=== PATIENT | female | born 1970 ===

== ENCOUNTER 2023-03-25 19:06 | Emergency (ER) | payer OTHER ==
[~2023-03-25] VITALS: Ht 167.6 cm; Wt 108.9 kg
[2023-03-25 19:13] VITALS: BP 144/79; RESP 16; TEMP 97.8; O2SAT 96
[2023-03-25] MEDS ORDERED: IBUPROFEN 600 MG TAB PO ONE (19:45)
[2023-03-25] MEDS ORDERED: HYDR28CR38 TP (20:17)
[2023-03-25] MEDS ORDERED: DIPH25TA53 PO (20:17)
[2023-03-25] MEDS ORDERED: MUPI2CRE22 TP (20:17)
[2023-03-25] MEDS ORDERED: IBUPROFEN 600 MG TAB ONE (20:19)
== END 2023-03-25 20:22 | disposition home or self-care (01) ==
LOC: MED 19:06
DX: T63.441A Toxic effect of venom of bees, accidental (unintentional), initial encounter (principal); L25.9 Unspecified contact dermatitis, unspecified cause; R03.0 Elevated blood-pressure reading, without diagnosis of hypertension; E11.9 Type 2 diabetes mellitus without complications; Z79.899 Other long term (current) drug therapy; Z79.2 Long term (current) use of antibiotics; Y92.89 Other specified places as the place of occurrence of the external cause
CPT/HCPCS: 99282; Q0163